=== PATIENT | male | born 2000 | race Caucasian/White ===

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

== ENCOUNTER 2019-01-09 20:28 | Emergency (ER) | payer OTHER ==
[~2019-01-09] VITALS: Ht 170.2 cm; Wt 59.1 kg
[2019-01-09 20:28] VITALS: BP 131/60
[~2019-01-09 20:28] MED LIST: ALEV220T26 PO; AUGM875T28 PO; FLAG500T PO; HYDR-3715 PO; LEVA1TAB2 PO; NORC1TAB7 PO; PRED10TA2 PO; TESS100C PO; VENTAER IN
[2019-01-09] MEDS ORDERED: ACETAMINOPHEN 325 MG TAB PO ONE (21:30)
[2019-01-09] MEDS ORDERED: IBUP-1022 PO (21:53)
--- NOTE | 2019-01-10 08:19 | REP ---
Clinical: Trauma. Technique: AP, lateral, bilateral oblique views right wrist . Findings: The carpal bones appear intact and no obvious acute fracture or dislocation is appreciated. However, the lateral view demonstrates posterior swelling and a small bony irregularity along the dorsal aspect of the wrist at the level of the distal carpal row. Correlation with physical examination and point of maximal tenderness is recommended as very subtle fracture cannot be excluded. No other fracture or dislocation is identified or suggested. Impression: Possible posterior swelling and small fracture along the dorsal aspect of the distal carpal row only identified on lateral radiograph. Correlation with point of tenderness and mechanism of injury is required. Electronically Signed by Camilo King MD 01/10/2019 08:11 A
--- NOTE | 2019-01-10 09:05 | REP ---
Clinical: Trauma. Technique: AP, lateral, bilateral oblique views right hand . Findings: The osseous structures and joint spaces are intact and normal. There is no evidence for acute fracture or dislocation. Surrounding soft tissues are unremarkable. No subcutaneous emphysema or radiodense foreign body. Impression: No acute fracture or dislocation. Electronically Signed by Camilo King MD 01/10/2019 08:56 A
--- NOTE | 2019-01-11 06:39 | ED PDOC ---
Post-Departure Follow-Up right wrist film faxed to [email or web address] charge operator this am will contact pt to disclose possible fx refer to [facility], and wear splint. Fatou Benjamin MD January 11, 2019 06:39
== END 2019-01-09 22:17 | disposition home or self-care (01) ==
LOC: M ED 20:28
DX: S63.91XA Sprain of unspecified part of right wrist and hand, initial encounter (principal); S60.221A Contusion of right hand, initial encounter; S60.511A Abrasion of right hand, initial encounter; W22.8XXA Striking against or struck by other objects, initial encounter; Y92.89 Other specified places as the place of occurrence of the external cause; Y99.0 Civilian activity done for income or pay; F17.210 Nicotine dependence, cigarettes, uncomplicated

== ENCOUNTER 2021-02-26 12:33 | Emergency (ER) | payer OTHER ==
[~2021-02-26] VITALS: Ht 170.2 cm; Wt 63.6 kg
[~2021-02-26 12:33] MED LIST changes: +IBUP-1022 PO
--- NOTE | 2021-02-26 13:21 | REP ---
INDICATION: pain and swelling after fall COMPARISON: None. TECHNIQUE: AP, lateral, bilateral oblique views right and left wrist. FINDINGS: Right wrist is normal. Left wrist demonstrates displaced fracture fragment along the dorsal aspect of the wrist from uncertain donor site. Overlying soft tissue swelling noted. IMPRESSION: Acute displaced fracture fragment along the dorsal aspect of the left wrist from uncertain carpal bone. <Electronically signed by Camilo King > 02/26/21 [id number]
[2021-02-26 14:38] VITALS: BP 132/92
== END 2021-02-26 14:41 | disposition home or self-care (01) ==
LOC: M ED 12:33
DX: S62.102A Fracture of unspecified carpal bone, left wrist, initial encounter for closed fracture (principal); S63.501A Unspecified sprain of right wrist, initial encounter; W19.XXXA Unspecified fall, initial encounter; Y92.9 Unspecified place or not applicable; Y93.89 Activity, other specified; Y99.9 Unspecified external cause status; K21.9 Gastro-esophageal reflux disease without esophagitis

== ENCOUNTER 2022-04-30 10:40 | Emergency (ER) | payer OTHER ==
[~2022-04-30] VITALS: Ht 170.2 cm; Wt 63.6 kg
[2022-04-30] MEDS ORDERED: LIDOCAINE 2% MDV 20ML VIAL SC ONE (14:00)
[2022-04-30] MEDS ORDERED: CEPHALEXIN 500 MG CAP PO ONE (14:20)
[2022-04-30] MEDS ORDERED: BOOSTRIX/ADACEL VACCINE (DIPHTH/PERTUSS/ACELL/TETANUS) 0.5ML SYR IM ONE (14:20)
[2022-04-30] MEDS ORDERED: CEPH500C PO (14:32)
[2022-04-30 14:38] VITALS: BP 131/80
== END 2022-04-30 14:46 | disposition home or self-care (01) ==
LOC: M ED 10:40
DX: S61.511A Laceration without foreign body of right wrist, initial encounter (principal); W26.8XXA Contact with other sharp object(s), not elsewhere classified, initial encounter; F17.200 Nicotine dependence, unspecified, uncomplicated; Z23 Encounter for immunization

== ENCOUNTER → 2022-05-08 | Outpatient (CLI) | payer OTHER ==
[~2022-05-08] MED LIST changes: +CEPH500C PO
== END ==
LOC: M LABSMTC 10:11
PROVIDERS: ATTEND Anesthesiology
DX: Z01.818 Encounter for other preprocedural examination (principal); Z11.52 Encounter for screening for COVID-19

== ENCOUNTER 2022-05-11 07:43 | Day surgery (SDC) | payer OTHER ==
[~2022-05-11] VITALS: Ht 170.2 cm; Wt 64.3 kg
[~2022-05-11 07:43] MED LIST changes: +ceFAZolin SOD 2 GM in IV 1 EA IV ONE
[2022-05-11] MEDS ORDERED: LR 1,000 ML IV SCH ×2 (07:55→11:00)
[2022-05-11] MEDS ORDERED: LIDOCAINE 2% 100MG/5ML SDV (FOR ANES.) As Ordered ONE (08:59)
[2022-05-11] MEDS ORDERED: fentaNYL 250 MCG/5 ML INJECTION As Ordered ONE (08:59)
[2022-05-11] MEDS ORDERED: MIDAZOLAM INJ 2MG/2ML VIAL (J2250 PER 1MG) As Ordered ONE (08:59)
[2022-05-11] MEDS ORDERED: KETOROLAC 60MG 2ML VIAL As Ordered ONE (08:59)
[2022-05-11] MEDS ORDERED: dexameTHASONE 4 MG/ML 1ML VIAL (J1100 PER 1MG) As Ordered ONE (08:59)
[2022-05-11] MEDS ORDERED: ONDANSETRON 4MG 2ML VIAL As Ordered ONE (08:59)
[2022-05-11] MEDS ORDERED: propofoL 200 MG/20 ML VIAL As Ordered ONE ×2 (09:00→10:19)
[2022-05-11] MEDS ORDERED: ACETAMINOPHEN 1000MG 100ML IV BTL (OFIRMEV) (J0131 PER 10MG) As Ordered ONE (09:00)
[2022-05-11] MEDS ORDERED: BACITRACIN OINTMENT 30GM TUBE As Ordered ONE (09:29)
[2022-05-11] MEDS ORDERED: BUPIVACAINE HCL 0.25% 30ML VIAL As Ordered ONE (09:54)
[2022-05-11] MEDS ORDERED: ONDANSETRON 4MG 2ML VIAL IV PRN (11:00)
[2022-05-11] MEDS ORDERED: fentaNYL 100 MCG/2 ML INJECTION IV PRN (11:00)
[2022-05-11] MEDS ORDERED: oxyCODONE 5MG TAB PO PRN (11:00)
[2022-05-11] MEDS ORDERED: METOCLOPRAMIDE INJ 10MG/2ML VIAL (J2765 PER 1) IV PRN (11:00)
[2022-05-11] MEDS ORDERED: PERC5TAB12 PO (11:12)
[2022-05-11 13:00] VITALS: BP 126/78
== END 2022-05-11 13:16 | disposition home or self-care (01) ==
LOC: M SDC 07:43
PROVIDERS: ATTEND Orthopaedic Surgery Hand Surgery
DX: S61.511A Laceration without foreign body of right wrist, initial encounter (principal); S64.11XA Injury of median nerve at wrist and hand level of right arm, initial encounter; S66.821A Laceration of other specified muscles, fascia and tendons at wrist and hand level, right hand, initial encounter; S56.129A Laceration of flexor muscle, fascia and tendon of unspecified finger at forearm level, initial encounter; X58.XXXA Exposure to other specified factors, initial encounter
CPT/HCPCS: 25260; 26350; 64910; C1762; J0131; J0690; J1100; J1885; J2250; J2405; J3010